=== PATIENT | male | born 1985 | race Two or more races ===

== ENCOUNTER 2022-11-05 08:36 | Emergency (ER) | payer MEDICAID, SELFPAY ==
--- NOTE | ~2022-11-05 | XR_ITS ---
EXAMINATION: XR CHEST CLINICAL INFORMATION: Right upper back pain COMPARISON: None available. TECHNIQUE: 2 views of the chest were obtained. FINDINGS: No significant abnormality is noted involving the heart, lungs, mediastinum, bony thorax or soft tissues. XR/XR chest 2V IMPRESSION: Unremarkable examination.
[2022-11-05 08:45] VITALS: BMI 27.9
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
[2022-11-05 09:20] VITALS: BP 128/80; PULSE 66; RESP 16; TEMP 36.8; O2SAT 97
[2022-11-05 10:35] VITALS: BP 135/69; PULSE 66; RESP 16; TEMP 36.6; O2SAT 97
--- NOTE | 2022-11-05 10:47 | PC.NURSE ---
reports decreased back pain. interpreter translator at bedside for reeval/d/c instructions. no questions. aox4. no distress noted.
== END 2022-11-05 10:48 | disposition home or self-care (01) ==
PROVIDERS: Emergency Provider Emergency Medicine
DX: S20.221A Contusion of right back wall of thorax, initial encounter (principal); Y00.XXXA Assault by blunt object, initial encounter; Y93.9 Activity, unspecified; Y92.9 Unspecified place or not applicable; Y99.9 Unspecified external cause status
CPT/HCPCS: 71046; 99283; 99284

== ENCOUNTER 2023-07-09 18:45 | Emergency (ER) | payer OTHER, SELFPAY ==
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
--- NOTE | ~2023-07-09 | XR_ITS ---
EXAMINATION: XR THORACOLUMBAR SPINE CLINICAL INFORMATION: Pain. COMPARISON: None available. TECHNIQUE: 2 views of the thoracic spine obtained. FINDINGS: The vertebral alignment is normal. No intrinsic bony abnormality. The disc heights and neural foramina are well maintained. The endplates and posterior elements are normal. No fracture or subluxation. The surrounding prevertebral soft tissues are unremarkable. XR/XR thoracic spine 2V IMPRESSION: No compression fractures or subluxations are identified. The disc spaces are preserved. No endplate changes are seen. The prevertebral soft tissues are normal. The foramina are patent.
--- NOTE | ~2023-07-09 | XR_ITS ---
EXAMINATION: XR LUMBOSACRAL SPINE CLINICAL INFORMATION: Pain. COMPARISON: None available. TECHNIQUE: Three views of the lumbosacral spine. FINDINGS: The vertebral bodies and posterior elements are normal. The disc spaces are preserved and the vertebral alignment is normal. The paraspinal soft tissues are normal. XR/XR lumbar spine 2-3V IMPRESSION: Unremarkable examination.
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
[2023-07-09 19:05] VITALS: BP 148/98; PULSE 92; RESP 18; TEMP 36.1; O2SAT 98; BMI 29.8
[2023-07-09 22:00] VITALS: BP 145/85; PULSE 75; RESP 16; TEMP 36.3; O2SAT 98
[2023-07-10] MEDS: Ibuprofen 600 MG TABLET PO (00:11)
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
[2023-07-10 01:31] VITALS: BP 129/84; PULSE 60; RESP 18; TEMP 36.2; O2SAT 99
[2023-07-10 01:35] VITALS: BP 129/84; PULSE 60; RESP 18; TEMP 36.2; O2SAT 99
== END 2023-07-10 01:35 | disposition home or self-care (01) ==
PROVIDERS: Emergency Provider Emergency Medicine Emergency Medical Services; PCP Nurse Practitioner Family
DX: S39.012A Strain of muscle, fascia and tendon of lower back, initial encounter (principal); R51.9 Headache, unspecified; M54.2 Cervicalgia; M54.6 Pain in thoracic spine; V43.52XA Car driver injured in collision with other type car in traffic accident, initial encounter; Y93.9 Activity, unspecified; Y92.410 Unspecified street and highway as the place of occurrence of the external cause; Y99.8 Other external cause status
CPT/HCPCS: 70450; 72070; 72100; 72125; 99283; 99284

== ENCOUNTER 2023-12-13 17:13 | Emergency (ER) | payer OTHER, SELFPAY ==
[2023-12-13 17:25] VITALS: BP 138/81; PULSE 67; RESP 18; TEMP 36.6; O2SAT 97; BMI 24.8
--- NOTE | 2023-12-13 17:25 | ED_ITS ---
HPI - General Adult General Chief complaint: Urogenital-Male Stated complaint: Painful penis Time Seen by Provider: 12/13/23 17:49 Source: patient Mode of arrival: ambulatory Limitations: no limitations History of Present Illness ED Provider: linda FLORES narrative: Patient with no history of STI complaining of rash on his penis for last 4 -5 days painful no penile discharge denies any history of herpes Related Data Previous Rx's ?Medication ?Instructions ?Recorded naproxen 500 mg tablet 500 mg PO BID PRN pain #30 tabs 11/05/22 cyclobenzaprine 10 mg tablet 10 mg PO TID PRN muscle spasm #15 07/10/23 tabs acyclovir 400 mg tablet 400 mg PO TID #30 tabs 12/13/23 Allergies Allergy/AdvReac Type Severity Reaction Status Date / Time No Known Allergies Allergy Verified 12/13/23 17:28 Review of Systems 2 Review of Systems: Yes all other systems are reviewed and are negative PMFSH Social History Social History Advance Directives: No Advance Directives Information Provided: No Physical Exam ED Vital Signs: Vital Signs - 24 hr 12/13/23 17:25 Temperature 97.8 F Pulse Rate 67 Respiratory Rate 18 Blood Pressure 138/81 Pulse Oximetry 97 Oxygen Delivery Method Room Air BMI result Body Mass Index 24.8 Male genitals images: 2 1. Ruptured vesicles uncircumcised penis Course Course Course Narrative: This is an RME done by RENZO Archuleta: Additional HPI, ROS, PE not included below will be deferred to primary provider. 38yo M presents with a CC of penile pain and itchy rash for a few days. Not concerned for STIs. Denies fevers, chills Appearance: Alert.? Oriented X3.? No acute cardiopulmonary distress distress.? Head: Normocephalic, atraumatic? CVS: Pulses normal.? Respiratory: No respiratory distress.?? Skin: ? Normal skin color. Neuro: Oriented X 3.? Medical Decision Making Medical Decision Making [facility] Narrative: Patient with painful rash on the penis likely herpes vesicular rash sample was taken for the culture will give him acyclovir Lab Data [facility] Lab Attestation statement: I reviewed the patient's lab results. Labs: Lab Results 12/13/23 Range/Units 18:49 Urine Color Yellow Urine Appearance Clear Urine pH 7.5 (5.0-9.0) Ur Specific [place] 1.020 (1.005-1.025) Urine Protein Negative (Neg-Trace) mg/dL Urine Glucose (UA) Negative (Negative) mg/dL Urine Ketones Negative (Negative) mg/dL Urine Blood Negative (Negative) Urine Nitrite Negative (Negative) Ur Leukocyte Esterase Negative (Negative) Discharge Plan Discharge Clinical Impression: Genital herpes simplex Patient Disposition: Home, Self-Care Instructions: Genital Herpes Simplex (ED) Additional Instructions: Possible you have herpes rash of the penis tip Have protected sex until rash heals completely Medication as prescribed for 10 days We have cultured the lesions will let you know about the result Prescriptions: New acyclovir 400 mg tablet 400 mg PO TID Qty: 30 0RF No Action naproxen 500 mg tablet 500 mg PO BID PRN (Reason: pain) Qty: 30 0RF cyclobenzaprine 10 mg tablet 10 mg PO TID PRN (Reason: muscle spasm) Qty: 15 0RF Print Language: Nigerian
[2023-12-13 18:56] LABS: Appearance Urine Clear; Color Urine Yellow; Glucose Urine UA Negative (Negative); Leukocyte Esterase Urine Negative (Negative); Nitrite Urine Negative (Negative); PH 7.5 (5.0-9.0); Urine Blood Negative (Negative); Urine Ketones Negative (Negative); Urine Protein Negative (Neg-Trace)
[2023-12-13] MEDS: Acyclovir 200 MG CAPSULE 400 MG PO (19:45)
[2023-12-13 19:48] VITALS: BP 138/81; PULSE 67; RESP 18; TEMP 36.6; O2SAT 97
[2023-12-14 07:15] LABS: CT PCR NOT DETECTED (Not Detect.); NG PCR NOT DETECTED (Not Detect.)
== END 2023-12-13 19:49 | disposition home or self-care (01) ==
PROVIDERS: Physician Assistant; Emergency Provider Internal Medicine; PCP Nurse Practitioner Family
DX: A60.01 Herpesviral infection of penis (principal); N48.89 Other specified disorders of penis; L29.9 Pruritus, unspecified
CPT/HCPCS: 81003; 87255; 87491; 87591; 99282; 99283

== ENCOUNTER 2023-12-15 08:14 | Outpatient (AMB) | payer OTHER, SELFPAY ==
[2023-12-15 08:17] VITALS: BP 118/76; PULSE 75; O2SAT 97; BMI 29.6
--- NOTE | 2023-12-15 08:17 | MHC.PC.OV ---
Vital Signs 12/15/23 08:17 Height 5 ft 3 in Weight 167 lb BMI 29.6 BP 118/76 Blood Pressure Location Lt brachial Position Sitting Pulse 75 Pulse Source Pulse Oximeter Pulse Oximetry (%) 97 Oxygen Delivery Method Room Air Intake Visit Reasons: establish care Dry Mop Maker Required: Yes Dry Mop Maker Language: Georgian Allergies No Known Allergies Allergy (Verified 12/15/23 08:33) Medication List - Last Reconciled 12/15/23 by Tonie Stewart PA-C acyclovir 400 mg PO TID Tobacco use date assessed: 12/15/23 Dental Screening Dental Screen Date: 12/15/23 Did you have a dental visit in the last 12 months?: Yes Did you have a dental problem in the last 6 months where you did not have access to dental care?: No Was dental information given to patient?: Patient has dentist HPI establish care HPI Details 38-year-old male with no documented past medical history coming to the office for the 1st time. In review of the notes, patient was seen in [facility] 12/13/2023 diagnosed with herpes simplex virus and given acyclovir. She states he is feeling generally well he does have a concern about the rash on his genitals. He states the rash has not changed since he was seen in the ER and he has been taking the acyclovir but has not noticed any difference. The rash is not painful but he does mentioned it itches around the glans without discharge or drainage. [facility] Family History Mother No problems noted. Father No problems noted. Daughter No problems noted. Daughter No problems noted. Daughter No problems noted. Son No problems noted. Social History Housing: Homeless ([facility]) Patient Tobacco Use Status: Never used Tobacco Tobacco use type: Cigarette e-Cigarette/Vaping Use: Never Used Second Hand Smoke Exposure: No service: No Current occupational status: unemployed Current occupational exposures/hazards: No Cognitive needs: No Hearing needs: No Vision needs: No Questionnaire PHQ-9 Over the last 2 weeks, how often have you been bothered by any of the following problems? 1. Little interest or pleasure in doing things: more than half the days 2. Feeling down, depressed, or hopeless: more than half the days 3. Trouble falling or staying asleep, or sleeping too much: not at all 4. Feeling tired or having little energy: not at all 5. Poor appetite or overeating: not at all 6. Feeling bad about yourself - or that you are a failure or have let yourself or your family down: not at all 7. Trouble concentrating on things, such as reading the newspaper or watching television: not at all 8. Moving or speaking so slowly that other people could have noticed. Or the opposite - being so fidgety or restless that you have been moving around a lot more than usual: not at all 9. Thoughts that you would be better off or of hurting yourself in some way: not at all Total score: 4 Depression Screening Interpretation: Positive Depression Screening Follow-up: Declines treatment Depression Screening Done: Yes 22807 - PHQ-9 Billing: Yes Source: Developed by Drs. Lam Kerns, Carol Silverman, Hussein Armijo and colleagues, with an educational lazaro from [employer] Thrive Questionnaire Date Thrive assessed: 12/15/23 I am a: Patient What is your living situation today?: I have a steady place to live Within the past 12 months, did the food you bought not last and you didn't have the money to get more?: I choose not to answer this question Within the past 12 months, did you worry whether your food would run out before you got money to buy more?: Never true Do you have trouble paying for medicines?: No Do you have trouble getting transportation to medical appointments?: No Do you have trouble paying your heating and electricity bill?: No Do you have trouble taking care of your child, family member or friend?: No Do you have trouble with day-to-day activities such as bathing, preparing meals, shopping, managing finances, etc.?: No Are you currently unemployed and looking for a job?: Yes Are you interested in more education?: Yes Please select the resources that you would like help with: Housing/[facility] Currently or been in a relationship where the following occur: No concerns reported THRIVE Score: 0 AUDIT C Alcohol Use Questionnaire (AUDIT-C) 1. How often do you have a drink containing alcohol?: Monthly or less 2. How many drinks containing alcohol do you have on a typical day when you are drinking?: 1 or 2 3. How often do you have six or more drinks on one occasion?: Never Total Score: 1 LAURA-7 AMB Questionnaire LAURA-7 Date LAURA - 7 assessed: 12/15/23 Feeling nervous, anxious, or on edge: 0 = Not at all Not being able to stop or control worryin = Not at all Worrying too much about different things: 0 = Not at all Trouble relaxin = Not at all Being so restless that it is hard to sit still: 1 = Several days Becoming easily annoyed or irritable: 0 = Not at all Feeling afraid as if something awful might happen: 0 = Not at all Total LAURA-7 score (0-4 normal; 5-9 mild; 10-14 moderate; 15-21 severe): 1 Source: Developed by Drs. Lam Kerns, Carol Silverman, Hussein Armijo and colleagues, with an educational lazaro from [employer] LAURA-7 Assessment Billing LAURA-7 Assessment Tool: LAURA-7 Assessment 44670 Review of Systems Const Denies body aches, Denies fatigue, Denies fever(s), Denies frequent falls, Denies headache(s) and Denies weakness Eyes Reports no additional complaints and Denies change in vision ENT Denies dysphagia, Denies dizziness, Denies facial pain, Denies headache(s), Denies nasal congestion and Denies odynophagia Card Denies chest pain, Denies syncope, Denies irregular heart rhythm, Denies leg edema, Denies lightheadedness and Denies dyspnea Resp Denies cough and Denies dyspnea GI Denies constipation, Denies dysphagia, Denies dyspepsia, Denies diarrhea, Denies nausea, Denies odynophagia and Denies vomiting Reports genital lesions, Denies dysuria, Denies urinary frequency, Denies urinary hesitancy and Denies urinary urgency Musc Denies back pain and Denies myalgias Skin/Breast Reports as per HPI Neuro Denies dizziness, Denies syncope, Denies frequent falls, Denies headache(s) and Denies weakness Psych Reports no additional complaints Endo Denies fatigue Physical exam (Primary Care) Vital Signs: Last Vital Signs Pulse 75 12/15/23 08:17 BP 118/76 12/15/23 08:17 Pulse Ox 97 12/15/23 08:17 Oxygen Delivery Method Room Air 12/15/23 08:17 BMI result Body Mass Index 29.6 Tobacco/Smoking Status: Tobacco use Status Tobacco use date assessed 12/15/23 12/15/23 08:24 Patient Tobacco Use Status Never used Tobacco 12/15/23 08:24 Tobacco use type Cigarette 12/15/23 08:24 e-Cigarette/Vaping Use Never Used 12/15/23 08:24 PHQ-9: PHQ-9 Score PHQ-9: Total score 4 12/15/23 08:37 Depression Screening Interpretation: Positive Depression Screening Follow-up: Declines treatment Thrive Assessment: Date of Thrive Assessment Date Thrive assessed 12/15/23 12/15/23 08:23 Currently or been in a relationship where the following occur: No concerns reported Const General: cooperative, healthy appearing, comfortable and no acute distress Orientation/consciousness: patient oriented x3 HENMT Head: Yes normocephalic Ears: hearing grossly normal bilaterally, external ears normal, TM's normal bilaterally and EAC's normal General nose exam: Normal external nose present Face and sinus: Yes normal facial exam and Yes sinuses nontender Mouth: Normal oral and palatal mucosa present and tongue normal Throat: Yes posterior oropharynx normal Eyes General: appearance normal, both eyes and all related structures Conjunctivae: conjunctivae normal Pupils: Equal, round and reactive pupils present EOM: EOMs intact bilaterally and No Nystagmus present Neck Neck: Yes normal visual inspection, Yes full ROM and Yes no lymphadenopathy Chest Chest palpation & inspection: normal inspection of the chest Resp Effort & Inspection: normal respiratory effort Auscultation: clear to auscultation bilaterally, no crackles, no rales, no rhonchi, no wheezes and breath sounds present Cardio Rate: regular rate Rhythm: regular rhythm Peripheral pulses: radial pulses present and dorsalis pedis present GI Inspection: Yes normal to inspection and No Abdominal wall edema Palpation (GI): Soft to palpation, not firm and nontender Auscultation: normal bowel sounds Rectal Exam - Male: Yes deferred Other: 2 vesicular lesions on the underside of the penile shaft and on foreskin without rupture. No evidence discharge and no other rashes observed General: Yes no CVA tenderness Back/Spine/Pelvis Back: no CVA tenderness Skin General skin exam: no rashes or lesions noted Neuro General: patient oriented x3 Cranial nerves: Yes Equal, round and reactive pupils present, Yes Midline tongue present, Yes Ability to bilaterally elevate shoulders present and No Nystagmus present Gait exam (Neuro): Normal gait present Extrem General: Yes normal to inspection, Yes full ROM, No no pedal edema and No edema Psych Speech and movement: Normal speech and movement present Affect: normal affect Insight: Good insight present (Psych) Judgement: Good judgement present (Psych) Assessment and Plan Assessment & Plan (1) Rash of genital area: Code(s): R21 - Rash and other nonspecific skin eruption Plan: Patient is being treated for HSV and they did take a culture of the vesicle in the ER. Also ordered for blood work for HSV. Patient is having itching around the glans and is requesting a cream. No discharge or drainage around the area but we will treat with clotrimazole cream. Referral to be placed for Dermatology if does not improve. (2) Annual physical exam: Code(s): Z00.00 - Encounter for general adult medical examination without abnormal findings Plan: Patient is up-to-date on all recommended routine screenings and vaccinations for his age. Ordered for updated blood work and follow up in 2 months. Plan This note was constructed using voice recognition software. While every effort has been made to ensure accuracy and jigger crown pouncing machine operator, still areas may have been included sometimes these areas may affect the content or meeting of the given symptoms. Total time spent caring for the patient today was 30 minutes. This includes time spent before the visit reviewing the chart, time spent during the visit, and time spent after the visit and documentation. Orders: Orders Lipid Panel Today Z00.00 - Encounter for general adult medical examination without abnormal findings TSH reflex Free T4 Today Z00.00 - Encounter for general adult medical examination without abnormal findings Free T4 (Free Thyroxine) Today Z00.00 - Encounter for general adult medical examination without abnormal findings Complete Blood Count Auto Diff Today Z00.00 - Encounter for general adult medical examination without abnormal findings Comprehensive Met. Panel Today Z00.00 - Encounter for general adult medical examination without abnormal findings Vitamin B12 and Folate Today Z00.00 - Encounter for general adult medical examination without abnormal findings Vitamin D 25-OH (D2 and D3) Today Z00.00 - Encounter for general adult medical examination without abnormal findings HSV I and II,IHC Today R21 - Rash and other nonspecific skin eruption Referrals Dermatology Referral R21 - Rash and other nonspecific skin eruption Medications: New clotrimazole 1% 1 appl topical BID 15 grams 0RF Coding Level of Care Code New Pt Level 3 (34766) New Pt Prev Care 18-39yr(68264 Diagnoses Rash of genital area R21 Annual physical exam Z00.00 Additional Codes LAURA-7 Assessment Billing - LAURA-7 Assessment Tool: LAURA-7 Assessment 00140 ([id number])
== END 2023-12-15 12:39 | disposition home or self-care (01) ==
PROVIDERS: PCP Nurse Practitioner Family
DX: Z00.00 Encounter for general adult medical examination without abnormal findings (principal); R21 Rash and other nonspecific skin eruption
CPT/HCPCS: 99203

== ENCOUNTER 2024-01-18 09:15 | Outpatient (REF) | payer OTHER, SELFPAY ==
[2024-01-18 09:39] LABS: MANUAL DIFF FLAG NO
[2024-01-18 09:55] LABS: Basophils Absolute Auto 0.1 X10*3/uL (0.0-0.2); Basophils Percent Auto 1.4 % (0-2); Eosinophils Absolute Auto 0.2 X10*3/uL (0.0-0.4); Eosinophils Percent Auto 4.2 % (0-4); Hemoglobin 13.7 g/dl (14.0-18.0); Imm Gran Abs Auto 0.03 X10*3/uL (0.00-0.03); Imm Gran Pct Auto 0.5 % (0.0-0.4); Lymphocytes Absolute Auto 2.4 X10*3/uL (1.2-4.9); Lymphocytes Percent Auto 41.9 % (20-40); Mean Corpuscular HGB Conc 33.4 g/dl (31.0-36.0); Mean Corpuscular Hemoglobin 29.5 pg (27.0-33.0); Mean Corpuscular Volume 88.4 fL (80.0-98.0); Mean Platelet Volume 9.5 fL (9.4-12.4); Monocytes Absolute Auto 0.4 X10*3/uL (0.1-1.2); Monocytes Percent Auto 7.3 % (2-11); Neutrophils Absolute Auto 2.6 x10*3/uL (2.0-8.3); Neutrophils Percent Auto 44.7 % (45-73); Platelet Count 364 X10*3/uL (160-400); Red Blood Count 4.64 X10*6/uL (4.60-5.80); Red Cell Distribution Width 12.7 % (11.0-16.0); White Blood Count 5.8 X10*3/uL (4.8-10.8)
[2024-01-18 10:20] LABS: Alanine Aminotransferase 20 U/L (0-40); Albumin Level 4.5 g/dL (3.5-5.0); Alkaline Phosphatase 56 U/L (39-117); Anion Gap 10 (12-20); Aspartate Amino Transferase 26 U/L (5-37); Bilirubin Total 0.7 mg/dL (0.0-1.0); Blood Urea Nitrogen 16 mg/dL (9-16); Calcium 9.9 mg/dL (8.4-10.2); Carbon Dioxide 29 mmol/L (22-29); Chloride 105 mmol/L (96-108); Cholesterol 183 mg/dL (<200); Estimated Glomerular Filt Rate > 60; Glucose Random 100 mg/dL (60-115); HDL Cholesterol 42 mg/dL (>40); LDL Cholesterol Calculated 128 mg/dL (<100); Potassium 3.8 mmol/L (3.3-5.1); Sodium 140 mmol/L (135-145); Total Protein 8.1 g/dL (6.5-8.0); Triglycerides 65 mg/dL (<150)
[2024-01-18 10:38] LABS: TSH reflex Free T4 0.89 uIU/mL (0.32-4.0)
[2024-01-18 10:49] LABS: Folate 11.7 ng/mL (> or = 4.0); Vitamin B12 622 pg/mL (200-900)
[2024-01-23 15:58] LABS: Vitamin D 25-OH, D2 <4 ng/mL; Vitamin D 25-OH, D3 25 ng/mL; Vitamin D 25-OH, Total 25 ng/mL (30-100)
== END 2024-01-18 09:16 | disposition home or self-care (01) ==
LOC: HO.LAB 09:15
DX: Z00.00 Encounter for general adult medical examination without abnormal findings (principal)
CPT/HCPCS: 36415; 80053; 80061; 82306; 82607; 82746; 84439; 84443; 85025

== ENCOUNTER 2024-02-15 09:42 | Outpatient (AMB) | payer OTHER, SELFPAY ==
[2024-02-15 09:45] VITALS: BP 124/82; PULSE 68; O2SAT 98; BMI 29.9
--- NOTE | 2024-02-15 09:45 | A.OFFPC_ITS ---
Vital Signs 02/15/24 09:45 Height 5 ft 3 in Weight 169 lb BMI 29.9 BP 124/82 Blood Pressure Location Lt brachial Position Sitting Pulse 68 Pulse Source Pulse Oximeter Pulse Oximetry (%) 98 Oxygen Delivery Method Room Air Intake Visit Reasons: f/u bloodwork Hotel Operation Manager Required: Yes Hotel Operation Manager Language: Type Disk Quality Control Supervisor Name: Suzi [id number] Accompanied by: Self / Same As Patient Allergies No Known Allergies Allergy (Verified 02/15/24 09:46) Medication List - Last Reconciled 02/15/24 by Tonie Stewart PA-C acyclovir 400 mg PO TID cholecalciferol (vitamin D3) 25 mcg PO DAILY clotrimazole 1% 1 appl topical BID Tobacco use date assessed: 12/15/23 Dental Screening Dental Screen Date: 12/15/23 HPI f/u bloodwork HPI Details 38-year-old male last seen December coming in for follow up on lab work. Patient states he is feeling generally well today and has no acute concerns. He was referred to dermatology his last appointment for a genital rash. He states the rash is still present but the cream and medication has been helping. He has not yet made an appointment with Dermatology. [facility] Family History Mother No problems noted. Father No problems noted. Daughter No problems noted. Daughter No problems noted. Daughter No problems noted. Son No problems noted. Social History Housing: Homeless Patient Tobacco Use Status: Never used Tobacco Tobacco use type: Cigarette e-Cigarette/Vaping Use: Never Used Second Hand Smoke Exposure: No service: No Current occupational status: unemployed Current occupational exposures/hazards: No Cognitive needs: No Hearing needs: No Vision needs: No Questionnaire Thrive Questionnaire Date Thrive assessed: 12/15/23 I am a: Patient What is your living situation today?: I have a steady place to live Within the past 12 months, did the food you bought not last and you didn't have the money to get more?: I choose not to answer this question Within the past 12 months, did you worry whether your food would run out before you got money to buy more?: Never true Do you have trouble paying for medicines?: No Do you have trouble getting transportation to medical appointments?: No Do you have trouble paying your heating and electricity bill?: No Do you have trouble taking care of your child, family member or friend?: No Do you have trouble with day-to-day activities such as bathing, preparing meals, shopping, managing finances, etc.?: No Are you currently unemployed and looking for a job?: Yes Are you interested in more education?: Yes Please select the resources that you would like help with: Housing/[facility] Currently or been in a relationship where the following occur: No concerns reported THRIVE Score: 0 LAURA-7 AMB Questionnaire LAURA-7 Date LAURA - 7 assessed: 12/15/23 Source: Developed by Drs. Lam Kerns, Carol Silverman, Hussein Armijo and colleagues, with an educational lazaro from [employer]. Review of Systems Const Denies body aches, Denies chills and Denies fever(s) Eyes Reports no additional complaints ENT Reports no additional complaints Card Denies chest pain, Denies leg edema, Denies lightheadedness and Denies dyspnea Resp Denies dyspnea GI Denies abdominal pain, Denies nausea and Denies vomiting Reports no additional complaints Musc Reports no additional complaints Skin/Breast Reports system reviewed and no additional complaints, except as documented Neuro Reports no additional complaints Physical exam (Primary Care) Vital Signs: Oxygen Delivery Method Room Air 02/15/24 09:45 BMI result Body Mass Index 29.9 Tobacco/Smoking Status: Tobacco use Status Tobacco use date assessed 12/15/23 12/16/23 19:44 Patient Tobacco Use Status Never used Tobacco 12/16/23 19:44 Tobacco use type Cigarette 12/16/23 19:44 e-Cigarette/Vaping Use Never Used 12/16/23 19:44 Thrive Assessment: Date of Thrive Assessment Date Thrive assessed 12/15/23 12/16/23 19:44 Currently or been in a relationship where the following occur: No concerns reported Const General: cooperative, healthy appearing, comfortable and no acute distress Orientation/consciousness: patient oriented x3 HENMT Head: Yes normocephalic Ears: hearing grossly normal bilaterally General nose exam: Normal external nose present Eyes General: appearance normal, both eyes and all related structures Conjunctivae: conjunctivae normal Neck Neck: Yes full ROM and Yes no lymphadenopathy Resp Effort & Inspection: normal respiratory effort Auscultation: clear to auscultation bilaterally, no crackles, no rales, no rhonchi and no wheezes Cardio Rate: regular rate Rhythm: regular rhythm Skin General skin exam: no rashes or lesions noted Neuro General: patient oriented x3 Gait exam (Neuro): Normal gait present Extrem General: Yes normal to inspection, Yes full ROM and No edema Psych Affect: normal affect Attitude: cooperative Insight: Good insight present (Psych) Judgement: Good judgement present (Psych) Coding Level of Care Code Est Pt Level 3 (57174) Diagnoses Hypercholesterolemia E78.00 Rash of genital area R21 Assessment & Plan Assessment & Plan (1) Hypercholesterolemia: Code(s): E78.00 - Pure hypercholesterolemia, unspecified Category: Medical Plan: Avoid foods that are high in cholesterol such as red meat, fried foods, eggs and baked goods. Triglyceride goal of less than 150 and LDL goal of less than 130. Not currently on medical management. Discussed lifestyle modification with diet and exercise and we will repeat cholesterol labs in 6 months. (2) Rash of genital area: Code(s): R21 - Rash and other nonspecific skin eruption Category: Medical Plan: Advised patient to reach out to [facility] Dermatology to schedule appointment. Plan This note was constructed using voice recognition software. While every effort has been made to ensure accuracy and web producer, still areas may have been included sometimes these areas may affect the content or meeting of the given symptoms. Total time spent caring for the patient today was 20 minutes. This includes time spent before the visit reviewing the chart, time spent during the visit, and time spent after the visit and documentation. Orders: Orders Lipid Panel 6 Months E78.00 - Pure hypercholesterolemia, unspecified Medications: New cholecalciferol (vitamin D3) 25 mcg PO DAILY 90 caps 3RF
== END 2024-02-15 10:34 | disposition home or self-care (01) ==
DX: E78.00 Pure hypercholesterolemia, unspecified (principal); R21 Rash and other nonspecific skin eruption

== ENCOUNTER → 2024-02-15 09:42 | Outpatient (BNVA) | payer OTHER, SELFPAY | DX: R21 Rash and other nonspecific skin eruption (principal); E78.00 Pure hypercholesterolemia, unspecified | CPT/HCPCS: 99212 ==

== ENCOUNTER 2025-02-21 09:26 | Emergency (ER) | payer OTHER, SELFPAY ==
[2025-02-21 09:28] VITALS: BP 134/83; PULSE 81; RESP 18; TEMP 35.7; O2SAT 98; BMI 28.1
--- NOTE | 2025-02-21 10:35 | ED_ITS ---
HPI - General Adult General Chief complaint: Skin/Abscess/Foreign Body Stated complaint: abscess abd area Time Seen by Provider: 02/21/25 10:20 Source: patient Mode of arrival: ambulatory Limitations: no limitations History of Present Illness ED Provider: Best George HPI narrative: 39 yold male with pmh of geintal herpes presents to the ED for left lower abdominal rash that is very itchy. patietn denies any redness, profuse pus discaharge, mass, abdominal pain, fever, chills, diarrhea, insect bite, rash elswhere on the body, swelling of the lips/tongue/or face. patient states no abdominal pain, nuasea, vomitting, chest pain, or shortness of breath. Related Data Previous Rx's ?Medication ?Instructions ?Recorded acyclovir 400 mg tablet 400 mg PO TID #30 tabs 12/12 clotrimazole 1 % topical cream 1 appl topical BID #15 grams 12/15/23 cholecalciferol (vitamin D3) 25 25 mcg PO DAILY #90 ca ps 02/15/24 mcg (1,000 unit) capsule hydrocortisone 1 % topical cream 1 appl topical TID VA N itching 2 02/21/25 weeks #28.35 grams Allergies Allergy/AdvReac Type Severity Reaction Status Date / Time No Known Allergies Allergy Verified 02/21/25 09:33 Review of Systems 2 Review of Systems: itchy rash Yes all other systems are reviewed and are negative [facility] Family History Family History Mother No problems noted. Father No problems noted. Daughter No problems noted. Daughter No problems noted. Daughter No problems noted. Son No problems noted. Social History Social History Housing: Homeless Patient Tobacco Use Status: Never used Tobacco Tobacco use type: Cigarette e-Cigarette/Vaping Use: Never Used Second Hand Smoke Exposure: No service: No Current occupational status: unemployed Current occupational exposures/hazards: No Cognitive needs: No Hearing needs: No Vision needs: No Physical Exam ED Vital Signs: Vital Signs - 24 hr 02/21/25 09:28 Temperature 96.2 F L Pulse Rate 81 Respiratory Rate 18 Blood Pressure 134/83 Pulse Oximetry 98 Oxygen Delivery Method Room Air BMI result Body Mass Index 28.1 Const General: cooperative, healthy appearing, comfortable, no acute distress, well developed, alert, awake and Physically active Orientation/consciousness: patient oriented x3 [facility] Head: Yes normal to inspection, Yes No palpable skull fracture present, Yes normocephalic and Yes atraumatic Eyes General: appearance normal, both eyes and all related structures Neck Neck: Yes normal visual inspection, Yes full ROM, Yes no lymphadenopathy, Yes no meningeal signs, Yes trachea midline, Yes supple, No anterior neck swelling and No tender Chest Chest palpation & inspection: normal inspection of the chest and normal palpation of entire chest wall Resp Effort & Inspection: normal respiratory effort and able to speak in complete sentences Cardio Jugular venous distension: no JVD Heart sounds: S1 normal heart sound present and S2 normal heart sound present GI Inspection: Yes normal to inspection Palpation (GI): Soft to palpation, not firm, nontender, no guarding and not rigid Abdomen image: 2 1. left lower abdominal rash dry with exocoriations. negative for swelling, mass, tenderness, erythema, pus weeping discharge, vesuciular lesions, erythema marginatum, ecchymosis, deformity, or peeling skin General: Yes no CVA tenderness Back/Spine/Pelvis Back: no CVA tenderness and No back tenderness Skin General skin exam: no rashes or lesions noted, elasticity normal and turgor normal Neuro General: patient oriented x3, gait normal, tone normal, moves all extremities, Normal light touch and pain sensation, no meningeal signs, no focal motor deficits, CN's II-XI intact bilaterally and normal sensation to monofilament Extrem Other: left lowr abdominal dermaitits Psych Appearance: grossly normal, well kempt and not disheveled Medical Decision Making Medical Decision Making MDM Narrative: 39-year-old male presents to ED for left lower abdominal itchy rash for the past 3 days. History physical exam negative for signs of cellulitis, abscess, MRSA, osteomyelitis, necrotizing fasciitis, shingles, herpes, peritoneal abscess, perforation, diverticulitis, Mason Deon syndrome, STI, anaphylaxi or any other life-threatening etiology. Patient will be treated as dermaittis and follow up [facility] PCP and dermatologits Differential Diagnosis Differential Diagnoses: The differential diagnosis associated with the presentation includes (dermaitits, allergic reaction, cellulitits) Admission/Observation Consideration of admission/observation: Escalation of care including admission/observation considered Independent Historian Clinical information obtained from an independent historian. History obtained from or confirmed by: Other (paitnet) Prescription Management I considered prescription management with: Other (hydrocortisteroid) Discharge Plan Discharge Clinical Impression: Contact dermatitis, Dermatitis, Rash Patient Disposition: Home, Self-Care Instructions: Contact Dermatitis (ED), Acute Rash (ED), Dermatitis (ED) Additional Instructions: You will need follow up with primary care provider and cath laboratory technician. Return to ED for worsening rash, pus discharge, foul odor, feeling, fever, chills, redness, bluish black discoloration, or any other concerning symptoms. [facility] [address], [place] [address]. . [email or web address] Appoinment can be made online. Prescriptions: New hydrocortisone 1 % cream 1 appl topical TID PRN (Reason: itching) 14 Days Qty: 28.35 0RF No Action acyclovir 400 mg tablet 400 mg PO TID Qty: 30 0RF clotrimazole 1 % cream 1 appl topical BID Qty: 15 0RF cholecalciferol (vitamin D3) 25 mcg (1,000 unit) capsule 25 mcg PO DAILY Qty: 90 3RF Referrals: Tonie Stewart PA-C [Primary Care Provider, Internal Medicine] - 2 days Referral Note: Rash Clinical Impression: Dermatitis; Rash; Contact dermatitis Stand Alone Forms: Work/School Release Interventions: ED Discharge Assessment Last Done: 02/21/25 11:13 Discharge Date/Time: 02/21/25 11:14 Print Language: Japanese
[2025-02-21 11:13] VITALS: BP 134/83; PULSE 81; RESP 18; TEMP 35.7; O2SAT 98
== END 2025-02-21 11:14 | disposition home or self-care (01) ==
PROVIDERS: Emergency Provider Emergency Medicine
DX: L25.9 Unspecified contact dermatitis, unspecified cause (principal); R21 Rash and other nonspecific skin eruption
CPT/HCPCS: 99282; 99283

== ENCOUNTER 2025-04-03 10:54 | Outpatient (AMB) | payer OTHER, SELFPAY ==
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
[2025-04-03 10:57] VITALS: BP 122/90; PULSE 71; RESP 18; TEMP 36.6; O2SAT 98; BMI 28.8
[2025-04-03 11:37] VITALS: BP 126/84
== END 2025-04-03 11:38 | disposition home or self-care (01) ==
LOC: HO.HMCH 10:55
DX: Z00.00 Encounter for general adult medical examination without abnormal findings (principal); R21 Rash and other nonspecific skin eruption; E78.00 Pure hypercholesterolemia, unspecified; M79.89 Other specified soft tissue disorders

== ENCOUNTER 2025-04-03 10:54 | Outpatient (REF) | payer OTHER, SELFPAY ==
--- NOTE | ~2025-04-03 | XR_ITS ---
EXAMINATION: XR FOOT 3 OR MORE VIEWS LEFT HISTORY: M79.89 - Other specified soft tissue disorders COMPARISON: There are no prior studies available for comparison. FINDINGS: Three views of the left foot are submitted. Osseous mineralization is normal. There is no fracture or dislocation. The joint spaces are preserved. The soft tissues are unremarkable. XR/XR foot LT min 3V IMPRESSION: Unremarkable examination of the left foot. Electronically signed by: Lam Brooks MD 04/03/2025 01:31 PM NILDA
== END 2025-04-03 10:55 | disposition home or self-care (01) ==
LOC: HO.XRAY 10:54
DX: Z00.00 Encounter for general adult medical examination without abnormal findings (principal); E78.00 Pure hypercholesterolemia, unspecified; R21 Rash and other nonspecific skin eruption; M25.572 Pain in left ankle and joints of left foot; M79.89 Other specified soft tissue disorders
CPT/HCPCS: 73630; 96127; 99396

== ENCOUNTER → 2025-04-03 11:57 | Outpatient (BNV) | payer OTHER, SELFPAY | PROVIDERS: Visit Provider Radiology Diagnostic Radiology | DX: M79.672 Pain in left foot (principal) | CPT/HCPCS: 73630 ==